=== PATIENT | male | born 1980 | race Caucasian/White ===

== ENCOUNTER 2018-10-14 18:15 | Emergency (ER) | payer OTHER ==
--- NOTE | 2018-10-15 00:14 | ER ---
REASON FOR EMERGENCY ROOM VISIT: Laceration, left forehead. HISTORY: This 37-year-old man was playing softball with some friends and when he was standing in the outfield holding a beer and was struck by a softball above the left eye sustaining a laceration. He denies any loss of consciousness or visual symptoms. He has not had any numbness, tingling, dizziness, weakness, nausea, or vomiting. His last tetanus booster was 1 year ago. MEDICATIONS: None. ALLERGIES: NONE. PAST MEDICAL HISTORY: Reviewed. Noncontributory. REVIEW OF SYSTEMS: Pertinent positives and negatives as listed in the HPI. PHYSICAL EXAMINATION: He has a smell of alcohol on his breath, but he is appropriate, alert and oriented x3 and in no acute distress. Blood pressure 125/71, pulse is 77, O2 sats 99%, respirations 16. HEENT: He has no hemotympanum. His pupils are equally round and reactive to light. There is no facial asymmetry. Extraocular muscles are intact. He has a 5 cm L-shaped laceration beginning along the cephalad most aspect of his left eyebrow. It is configured with a 4 cm long laceration and with a 1 cm vertically oriented laceration making it an L-shaped laceration. It goes through the subcutaneous tissue and some of the frontalis muscle is also involved. No bony crepitus is noticed. He has no foreign body present. Cranial nerves 2 through 12 are intact. Deep tendon reflexes are symmetrical. Muscle strength, bulk, and tone is normal and symmetrical. Sensation is normal to crude touch. IMPRESSION: Left forehead laceration, 5 cm in length. FURTHER EMERGENCY ROOM COURSE: The wound was dressed and was washed copiously with Hibiclens surgical soap and approximately 4 mL of 1% xylocaine with epinephrine was used for local anesthesia. Because the frontalis muscle was involved, I approximated the edges of this with 4 interrupted 5-0 Vicryl absorbable sutures. The skin edges were approximated with approximately twelve 5-0 monofilament nylon sutures. The skin edges were bleeding a significant amount, but hemostasis was adequate after the laceration was repaired. The area was cleansed and then antibiotic ointment was applied over which an occlusive dressing was applied. PLAN: He was instructed regarding wound cares as well as symptoms and signs of infection. He was told to keep it clean and dry for at least 24 hours upon which he can shower and then keep it covered with a Band-Aid as needed. He can expect it to become somewhat swollen and ecchymotic over the next day or so. He should have the sutures removed in 7 days' time. I instructed him on these things twice and he understands. He was also given some written literature regarding wound care, etc. All questions were answered. He understands and agrees to this plan. SABRA /[id number]
== END 2018-10-14 19:05 | disposition home or self-care (01) ==
LOC: LB.ED 18:15
DX: S01.81XA Laceration without foreign body of other part of head, initial encounter (principal); W21.07XA Struck by softball, initial encounter; Y93.64 Activity, baseball
CPT/HCPCS: 12013; 99282; J2001